=== PATIENT | female | born 1995 | race African-American/Black ===

== ENCOUNTER 2023-08-24 17:04 | Emergency (ER) | payer OTHER ==
[~2023-08-24] VITALS: Ht 167.6 cm; Wt 67.1 kg
[2023-08-24] MEDS ORDERED: IBUPROFEN 400 MG TABLET ONE (17:46)
[2023-08-24] MEDS: IBUPROFEN 400 MG TABLET PO ONE (17:48)
[2023-08-24] MEDS ORDERED: TDAP [DIPH/PERTUSSIS/TET] 0.5 ML VIAL IM ONE (18:29)
[2023-08-24] MEDS: TDAP [DIPH/PERTUSSIS/TET] 0.5 ML VIAL IM ONE (18:30)
[2023-08-24 18:35] VITALS: BP 120/78; TEMP 98.2; O2SAT 98
== END 2023-08-24 18:36 ==
LOC: ER 17:13
DX: S01.311A Laceration without foreign body of right ear, initial encounter (principal); S09.90XA Unspecified injury of head, initial encounter; I10 Essential (primary) hypertension; Y08.89XA Assault by other specified means, initial encounter; Y93.89 Activity, other specified; Y92.89 Other specified places as the place of occurrence of the external cause; Y99.8 Other external cause status
CPT/HCPCS: 99283; 90471; 90715; A6403